=== PATIENT | female | born 1985 | race Caucasian/White ===

== ENCOUNTER 2024-11-17 10:09 | Outpatient (AMB) | payer BC, SELFPAY ==
[2024-11-17 10:33] VITALS: BP 108/65; PULSE 64; RESP 18; TEMP 36.1; O2SAT 99; BMI 20.2
--- NOTE | 2024-11-17 10:33 | GYNCLNT_ITS ---
Vital Signs 11/17/24 10:33 Height 1.73 m Height Method Stated Weight 60.441 kg Weight Measurement Method Standing Scale BMI 20.2 BP 108/65 Blood Pressure Source Automatic Cuff Blood Pressure Location Left Upper Arm Position Sitting Respiration 18 Pulse 64 Pulse Source Monitor Temp 97 F Temp Source Oral Pulse Oximetry (%) 99 Oxygen Delivery Method Room Air Allergies/Home Meds Allergies & Medications Allergies No Known Allergies Allergy (Verified 11/17/24 10:34) Medication Reconciliation No Known Home Medications 11/17/24 [History Confirmed 11/17/24] Intake Visit Data Collection New Patient or Established: New Patient (never been to [facility]) Reason for Visit:: Heavy menses, desires ablation Seen by Clinical Staff ONLY (RN/MA): No Traffic Inspector Required: No Do You Feel Safe at Home: Yes Authorities Contacted: N/A PCP or OBGYN visit in last 3 months: Yes Hx Now: No Are you currently on any form of Control: No Last menstrual period: 10/13/24 Pain Present Currently: No Pain Scale Used: Walker-Cash/Numerical Pain scale:: 0 Smoking Status Smoking Status: Never smoker Convalescent Sitter history Convalescent Sitter History Menstrual regularity: regular Flow: normal Monthly: Yes How many days does period last: 7 Age at menarche: 13 Menopausal: No Currently sexually active: Yes Questionnaires Covid-19 Vaccine Questionnaire Has patient been vacinated for Covid-19 Have you been vacinated for Covid-19: No PHQ-9 PHQ-2 Over the last 2 weeks, how often have you been bothered by any of the following problems? 1. Little interest or pleasure in doing things: not at all 2. Feeling down, depressed, or hopeless: not at all Total score: 0 PHQ-9 3. Trouble falling or staying asleep, or sleeping too much: Not at all 4. Feeling tired or having little energy: Not at all 5. Poor appetite or overeating: Not at all 6. Feeling bad about yourself - or that you are a failure or have let yourself or your family down: Not at all 7. Trouble concentrating on things, such as reading the newspaper or watching television: Not at all 8. Moving or speaking so slowly that other people could have noticed? - Or the opposite - being so fidgety or restless that you have been moving around a lot more than usual: not at all 9. Thoughts that you would be better off or of hurting yourself in some way: Not at all Total score: 0 If you checked off any problems, how difficult have these problems made it for you to do your work, take care of things at home, or get along with other people?: not difficult at all Source: Developed by Drs. Johnny Ca, Gabi Franklin, Mino Tapia and colleagues, with an educational trina from [employer]. 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 He has 2 kids Tobacco History Smoking Status: Never smoker Second Hand Smoke Exposure: No Alcohol History Alcohol Intake: Never Domestic Abuse History Do You Feel Safe at Home: Yes Past Medical History Past Medical History Have you ever been diagnosed with any of the following: Reproductive Problems Breast Cancer: No Endometriosis: No Fibroids: No Genital Herpes: No Gonorrhea: No Pelvic Inflammatory Disease: No Polycystic Ovarian Syndrome: No Previous Pregnancies: Yes ( x 2, SAB x 1, daughters are almost 2 and about 5) Endocrine Problems Hyperthyroidism: No Hypothyroidism: No Blood Problems Anemia: No Surgical History Appendectomy: Yes (1999) History of Present Illness HPI Narrative The patient is a 39 year old . I used to see her in [place] and delivered her last daughter. She has one daughter from a previous relationship and is now remarried to a strainer cleaner in [place] who was and has a son and daughter. He had a vasectomy but never went back for a sperm count. They got with the last daughter soon after the vasectomy. The patient reports heavy cycles every 28 days and is interested in ablation. She has tried OCPs for this and states she bleeds irregularly on them and does not like how she feels on them. She declines and IUD and wants to schedule an ablation. Review of Systems Review of Systems Narrative Review of Systems: No hot flashes, pelvic pain or abnormal discharge. Pt reports heavy VB. Exam General General Appearance: alert, in no apparent distress, comfortable, cooperative, healthy appearing, well developed and well groomed Neck Neck exam: Present normal inspection, full ROM and trachea midline Chest Chest inspection: Present normal inspection and symmetric chest wall rise Resp Respiratory exam: Present normal lung sounds bilaterally Card Cardiovascular exam: Present regular rate, normal rhythm and normal heart sounds Abdominal Abdominal exam: Present soft and normal bowel sounds Extremities Extremities exam: Present normal inspection and full ROM Psych Psychiatric exam: Present normal affect and normal mood Skin Skin exam: Present warm, dry, intact and normal color Assessment & Plan Diagnosis / Problem List (1) Menorrhagia with regular cycle: Status: Acute Assessment and Plan: Declines OCPs and mirena IUD. Desires Novasure ablation. Spouse with vasectomy. Need sperm count. Check US and labs. Will authorize for Novasure ablation. Office Procedures OB Clinic LOC & Office Proc's Nursing/Assessment Patient Status: Initial/New Patient OB Clinic Nursing Assessment: BP Monitoring, Medication Reconciliation, Update PMH in EMR and Vital Signs OB Clinic Coordination of Care: Consent,records obtained, informed consent, Education Simp Pt/Fam, Lab and Imaging orders and Staff clarify orders New Patient Charge New Patient Point Assignment: 1089 New Patient Point Charge: QUALITY ASSURANCE MONITOR CHASSIS Level 3 ([id number])
== END 2024-11-17 10:58 | disposition home or self-care (01) ==
LOC: HODSOBC 10:09
PROVIDERS: Supervising Provider Obstetrics & Gynecology; Visit Provider Obstetrics & Gynecology
DX: N92.0 Excessive and frequent menstruation with regular cycle (principal)
CPT/HCPCS: 99203; G0463